=== PATIENT | female | born 1940 | race Caucasian/White ===

== ENCOUNTER 2017-05-24 15:46 | Observation (INO) ==
[2017-05-24] MEDS ORDERED: 0.9 % Sodium Chloride 1,000 ML IVC ONE (18:01)
--- NOTE | 2017-05-24 18:22 | Emergency Department Note ---
Addendum entered and electronically signed by Valdo Bella DO 05/24/17 21 :35: Received patient in signout from Dr. Ureña. On my evaluation, the patient is stable in no acute distress. Imaging was negative for acute findings. Labs were without acute abnormalities. On my history, the patient describes more of a syncopal event today and which she was gardening, stood up to walk to another area of the garden, and the next thing she knew she was on the ground. This sounds more orthostatic, but she does not describe orthostatic situation in her prior falls in the last 2 weeks. We will bring her in for evaluation of multiple falls and likely syncope. Septic by the hospitalist for further management. Original Note: Disposition Clinical Impression: Multiple falls, Hx of cerebral aneurysm repair Disposition: Still a Patient Condition: Fair Time of Disposition: 19:36 Fall HPI - General Chief Complaint: ED Fall Stated Complaint: Falling Time Seen by Provider: 05/24/17 18:00 Source: patient Nursing Notes Reviewed: Yes Vital Signs Reviewed: Yes - History of Present Illness HPI Narrative: 77-year-old female with 6 falls over the last 1 week, patient is a history of multiple aneurysms one that was clipped in [facility], she also has a history of intraparenchymal hemorrhage, and stroke she takes aspirin Plavix, she has fallen several times but does not hit her head she thinks, denies loss of consciousness, she is of some right hip injury, but she is able to walk and bear weight on her right hip, she decided to come in she lives alone independently at home. This time she denies any chest pain or syncope, there is no prodrome prior to the fall but she is not sure if she tripped she is a little bit unclear if this call fall was mechanical, or hip pain is 3 out of 10 nonradiating, and aching in quality. She denies any fever chills weight changes recently nausea vomiting diarrhea constipation or urinary symptoms Pt Subjective Complaint: fall Onset (ago): day(s) Fall From: standing Fall Witnessed: no Place Fall Occurred: home Loss of Consciousness: unsure Prolonged Down Time?: no Symptoms Prior to Fall: dizziness Context: tripped/slipped Location of injury: head Location of injury - extremities: Right: hip Severity: mild Severity scale (1-10): 3 Associated symptoms (after fall): Reports: denies. Denies: headache, neck pain , numbness, weakness, shortness of breath - Related Data Home Medications Medication Instructions Recorded Confirmed Om3-Dha/Epa/D3/Lutein/Zeazanth 1 each PO BID 07/16/15 05/24/17 [Eye [place] Advantage Softgel] Aspirin [Ecotrin] 325 mg PO DAILY 05/24/17 05/24/17 Allergies Allergy/AdvReac Type Severity Reaction Status Date / Time Penicillins Allergy Severe Anaphylaxis Verified 05/24/17 16:16 acetaminophen [From Percocet] Allergy Mild Hives Verified 05/24/17 16:16 aspirin [From Percodan] Allergy Mild Hives Verified 05/24/17 16:16 hydrocodone [From Vicodin] Allergy Mild Hives Verified 05/24/17 16:16 Oxycodone [From Percocet] Allergy Mild Hives Verified 05/24/17 16:16 Procaine [From Novocain] Allergy Mild Hives Verified 05/24/17 16:16 propoxyphene Allergy Mild Hives Verified 05/24/17 16:16 [From Darvocet-N 100] IVP DYE Allergy Severe Anaphylaxis Uncoded 05/24/17 16:16 SEAFOOD Allergy Severe Anaphylaxis Uncoded 05/24/17 16:16 All systems ED: reviewed and negative except as stated. Constitutional: Reports: weakness. Denies: fever, chills Eyes: Denies: eye pain, eye discharge ENT ED: Denies: ear pain, throat pain Cardiovascular: Denies: chest pain, palpitations Respiratory: Denies: cough, dyspnea Gastrointestinal: Denies: abdominal pain, nausea, vomiting Genitourinary: Denies: urgency, dysuria Musculoskeletal: Reports: as per HPI, arthralgia. Denies: back pain, neck pain Integumentary: Denies: rash, abrasion Neurological: Reports: as per HPI. Denies: headache Fall PMH - Past Medical History Medical history: Reports: CVA, GERD, hyperlipidemia, TIA Surgical history: Reports: appendectomy, hysterectomy (colonoscopy, rotator cuff repair, carpal tunnel release R,bladder sling, Hysterectomy, back surgery.) Psychiatric history: Reports: no psych history CERAMIST history: Reports: no CERAMIST history - Social History Smoking Status: Former smoker Alcohol use: Reports: none Drug use: Reports: none Physical Exam Constitutional: Elderly female in no acute distress, hemodynamically stable. HEENT: NCAT, sclera anicteric Neck: normal inspection, neck is supple, trachea midline Resp: normal chest inspection, CTA bilaterally, no resp distress CV: RRR, no m/g/r GI: normal inspection, Soft, NTND, BS present Back: normal inspection, no tenderness to palpation Neuro: A&O3, nerves II through XII grossly intact bilaterally, patient with no focal neurologic deficits, upper and lower extremities equal muscle strength bilaterally, MSK: normal inspection, right hip mildly tender to palpation pelvis stable. Psych: normal mood, normal affect Skin: No rashes, skin warm, dry, intact - General Limitations: no limitations General appearance: alert, in no apparent distress Course Course Narrative: 77-year-old female with mechanical versus questionable syncopal fall, she did state that she is still dizzy, she is a history of aneurysms [place] will hemorrhage and stroke we will get a head CT stat, basic lab work with troponin EKG and reevaluate. - Reevaluation(s) Reevaluation #1: Care signed out to Dr. Shayne Jose, for ultimate disposition the patient Time: 19:10 Vital Signs Temperature 98.0 F 05/24/17 16:10 Pulse Rate 90 05/24/17 16:10 Respiratory Rate 18 05/24/17 16:10 Blood Pressure 159/80 05/24/17 16:10 O2 Sat by Pulse Oximetry 98 05/24/17 16:10 Temperature 97.6 F 05/26/17 07:26 Pulse Rate 76 05/26/17 07:26 Respiratory Rate 16 05/26/17 07:26 Blood Pressure 158/78 05/26/17 07:26 O2 Sat by Pulse Oximetry 99 05/26/17 07:26 Oxygen Delivery Oxygen Delivery Room Air Fall - Differential Diagnosis Likely: syncope - Lab Data Result diagrams: 05/25/17 06:26 05/25/17 06:26 Lab Results 05/24/17 05/24/17 05/24/17 Range/Units 18:59 18:59 18:59 WBC 6.5 (4.3-11.1) K/mcL RBC 4.51 (3.82-4.97) M/mcL Hgb 12.9 (11.5-15.4) g/dL Hct 40.2 (35.3-44.9) % MCV 89.1 (83.0-100.0) fL MCH 28.6 (28.0-33.3) pg MCHC 32.1 (31.6-35.5) g/dL RDW 12.8 (11.5-14.5) % Plt Count 255 (140-400) K/mcL MPV 10.5 (9.4-12.4) fL Immature Gran % 0.2 (0-4) % Seg Neutrophils % 63.0 % Lymphocytes % 27.7 % Monocytes % 6.6 % Eosinophils % 2.0 % Basophils % 0.5 % Neutrophils # 4.1 (1.6-8.9) K/mcL Lymphocytes # 1.8 (0.6-4.6) K/mcL Monocytes # 0.4 (0.0-1.3) K/mcL Eosinophils # 0.1 (0.0-0.6) K/mcL Basophils # 0.0 (0.0-0.2) K/mcL PT 10.7 (9.4-12.1) Seconds INR 1.0 Sodium 143 (136-145) mEq/L Potassium 3.8 (3.5-4.5) mEq/L Chloride 111 H (98-109) mEq/L Carbon Dioxide 26 (19-29) mEq/L BUN 21 H (7-20) mg/dL Creatinine 0.73 (0.57-1.11) mg/dL Est GFR ( Amer) > 60 (> 60) Est GFR (Non-Af Amer) > 60 (> 60) BUN/Creatinine Ratio 29 H (6-26) Glucose 101 H (70-99) mg/dL Calculated Osmolality 299 (280-300) Calcium 8.8 (8.6-10.8) mg/dL Total Bilirubin 0.5 (0.2-1.2) mg/dL AST 19 (5-34) Units/L ALT 15 (0-55) Units/L Alkaline Phosphatase 108 (38-126) Units/L Serum Total Protein 6.5 (6.0-8.3) g/dL Albumin 3.4 L (3.5-5.0) g/dL Globulin 3.1 (2.4-3.5) g/dL Albumin/Globulin Ratio 1.1 (1.1-2.2) Urine Color (Yellow) Urine Clarity (Clear) Urine pH (5.0-8.0) pH Units Ur Specific [place] (1.010-1.025) Urine Protein (Neg-Trace) mg/dL Urine Glucose (UA) (Normal) mg/dL Urine Ketones (Negative) mg/dL Urine Blood (Negative) Urine Nitrite (Negative) Urine Bilirubin (Negative) Urine Urobilinogen (Normal) mg/dL Ur Leukocyte Esterase (Negative) Ur Culture Indicated? (NO) 05/24/17 Range/Units 20:41 WBC (4.3-11.1) K/mcL RBC (3.82-4.97) M/mcL Hgb (11.5-15.4) g/dL Hct (35.3-44.9) % MCV (83.0-100.0) fL MCH (28.0-33.3) pg MCHC (31.6-35.5) g/dL RDW (11.5-14.5) % Plt Count (140-400) K/mcL MPV (9.4-12.4) fL Immature Gran % (0-4) % Seg Neutrophils % % Lymphocytes % % Monocytes % % Eosinophils % % Basophils % % Neutrophils # (1.6-8.9) K/mcL Lymphocytes # (0.6-4.6) K/mcL Monocytes # (0.0-1.3) K/mcL Eosinophils # (0.0-0.6) K/mcL Basophils # (0.0-0.2) K/mcL PT (9.4-12.1) Seconds INR Sodium (136-145) mEq/L Potassium (3.5-4.5) mEq/L Chloride (98-109) mEq/L Carbon Dioxide (19-29) mEq/L BUN (7-20) mg/dL Creatinine (0.57-1.11) mg/dL Est GFR ( Amer) (> 60) Est GFR (Non-Af Amer) (> 60) BUN/Creatinine Ratio (6-26) Glucose (70-99) mg/dL Calculated Osmolality (280-300) Calcium (8.6-10.8) mg/dL Total Bilirubin (0.2-1.2) mg/dL AST (5-34) Units/L ALT (0-55) Units/L Alkaline Phosphatase (38-126) Units/L Serum Total Protein (6.0-8.3) g/dL Albumin (3.5-5.0) g/dL Globulin (2.4-3.5) g/dL Albumin/Globulin Ratio (1.1-2.2) Urine Color Yellow (Yellow) Urine Clarity Clear (Clear) Urine pH 7.0 (5.0-8.0) pH Units Ur Specific [place] 1.009 L (1.010-1.025) Urine Protein Negative (Neg-Trace) mg/dL Urine Glucose (UA) Normal (Normal) mg/dL Urine Ketones Trace H (Negative) mg/dL Urine Blood Negative (Negative) Urine Nitrite Negative (Negative) Urine Bilirubin Negative (Negative) Urine Urobilinogen Normal (Normal) mg/dL Ur Leukocyte Esterase Negative (Negative) Ur Culture Indicated? NO (NO) - EKG Data EKG attestation: Yes I reviewed and interpreted this EKG. EKG results narrative: Normal sinus at 83. Normal ST segments. Normal QRS. Normal axis. EKG shows normal: sinus rhythm S.B.A.R. - S.B.A.R. Transition of Care: Dispo pending CTs Situation: Demographics, MOA Background: Presenting Complaint, Relevant PMH, Meds, & Allergies Assessment: Vital Signs, Course and respsone to treatment, Exam Concerns, Patient/Family Expectation, Pertinant Lab Results, Outstanding Labs Recommendation: Barrier(s) to disposition, Recommendation based on pending studies, treatments, or consults S.B.A.R. Report Given to: Shayne Abebe Repor Time: 19:35 Attestation Statement - Attestation Attestation: I examined this patient and my medical decision-making was reviewed with the SALES ATTENDANT/PA/Advanced Practice Nurse/Resident Physician. I agree with the documented findings, disposition and treatment plan as described except to the extent set forth below. Patient emergency department complaining of falls. Patient states she has had 5 falls recently. She is not sure why she is falling. She states she does not realize it is happening until she has fallen. Dizzy before but she has since last fall. Patient has a history of aneurysms. She is also on Plavix. On examination she is awake and alert. 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 No drift with arms or legs. No ataxia. Plan. Generalized weakness workup with head CT.
[2017-05-24 19:11] LABS: Basophils % 0.5 %; Eosinophils # 0.1 K/mcL (0.0-0.6); Hematocrit 40.2 % (35.3-44.9); Hemoglobin 12.9 g/dL (11.5-15.4); Immature Granulocytes % 0.2 % (0-4); Lymphocytes # 1.8 K/mcL (0.6-4.6); Lymphocytes % 27.7 %; Mean Corpuscular HGB Conc 32.1 g/dL (31.6-35.5); Mean Corpuscular Hemoglobin 28.6 pg (28.0-33.3); Mean Corpuscular Volume 89.1 fL (83.0-100.0); Mean Platelet Volume 10.5 fL (9.4-12.4); Monocytes # 0.4 K/mcL (0.0-1.3); Monocytes % 6.6 %; Neutrophils # 4.1 K/mcL (1.6-8.9); Platelet Count 255 K/mcL (140-400); Red Blood Count 4.51 M/mcL (3.82-4.97); Red Cell Distribution Width 12.8 % (11.5-14.5)
[2017-05-24 19:22] LABS: Alanine Aminotransferase 15 Units/L (0-55); Albumin 3.4 g/dL (3.5-5.0); Albumin/Globulin Ratio 1.1 (1.1-2.2); Alkaline Phosphatase 108 Units/L (38-126); Aspartate Amino Transferase 19 Units/L (5-34); BUN/Creatinine Ratio 29 (6-26); Bilirubin,Total 0.5 mg/dL (0.2-1.2); Blood Urea Nitrogen 21 mg/dL (7-20); Calcium 8.8 mg/dL (8.6-10.8); Carbon Dioxide 26 mEq/L (19-29); Chloride 111 mEq/L (98-109); Globulin 3.1 g/dL (2.4-3.5); Glucose 101 mg/dL (70-99); Osmolality,Calculated 299 (280-300); Potassium 3.8 mEq/L (3.5-4.5); Sodium 143 mEq/L (136-145); Total Protein 6.5 g/dL (6.0-8.3); eGFR For African Americans > 60 (> 60); eGFR For Non-African Americans > 60 (> 60)
[2017-05-24 19:45] LABS: Prothrombin Time 10.7 Seconds (9.4-12.1)
[2017-05-24 20:49] LABS: Bilirubin,Urine Negative (Negative); Blood,Urine Negative (Negative); Clarity,Urine Clear (Clear); Color,Urine Yellow (Yellow); Glucose,Urine (UA) Normal (Normal); Ketones,Urine Trace mg/dL (Negative); Leukocyte Esterase,Urine Negative (Negative); Nitrite,Urine Negative (Negative); Protein,Urine Negative (Neg-Trace); Specific Gravity,Urine 1.009 (1.010-1.025); Urobilinogen,Urine Normal (Normal)
--- NOTE | 2017-05-24 22:31 | Internal Med History&Physical ---
Date of Encounter: 05/25/17 Time of Encounter: 22:15 Assessment and Plan (1) Multiple falls Current visit: Yes Status: Acute Multiple falls over the past one week - unclear etiology Patient is fairly independent and lives by herself and ambulates independently Possible syncopal episodes vs CVA/TIA vs arrhythmia, less likely to be seizures EKG normal sinus rhythm Troponin pending CT head no acute and chronic process Chest x-ray no acute process Echocardiogram pending, carotid Doppler pending, MRI brain pending Continue aspirin, PT consult (2) Hyperlipidemia Current visit: Yes Status: Chronic Patient states she has been on multiple statins in the past, and she cannot tolerate them 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 and myopathy Qualifiers: Hyperlipidemia type: unspecified Qualified Code(s): E78.5 - Hyperlipidemia , unspecified (3) History of TIA (transient ischemic attack) Current visit: No Status: Chronic History of TIA, unclear if patient ever had a CVA Patient takes only aspirin at home (4) Hx of cerebral aneurysm repair Current visit: Yes Status: Chronic Patient has a history of cerebral aneurysm repair with clipping Follow up at [facility] (5) DVT prophylaxis Current visit: Yes Status: Acute Continue SCDs Internal Medicine - H&P: HPI Chief complaint: Multiple falls Admitted From: Emergency Dept History of present illness: Ms. Cee is a 77 year old female with past medical history of hyperlipidemia , TIA, cerebral aneurysm and GERD. She presents to the ED with complaints of multiple falls. Patient states over the past 1 week she has had almost 6 falls. Patient was apparently working in her garden today and in summary had an episode where she felt lightheaded and had a fall. She denies hitting her head. Denies loss of consciousness. Patient does complain of some right hip pain and right hip pain. Patient denies chest pain or shortness of breath. No dizziness at present. Denies palpitations, denies vomiting or abdominal pain or diarrhea. No fever or chills. At this time there is no clear evidence of syncope. Patient only felt lightheaded and had a fall, she is not sure if she tripped. This history is unclear at this time. She has had cerebral aneurysms in the past. Patient states she only takes aspirin at home. On examination patient is awake and alert. Not in any distress. Able to provide all history. No family members at bedside. Patient is alert and oriented. Initially the workup is negative including CT of the head and chest x-ray and hip x-ray. EKG shows normal sinus rhythm. Labs were fairly within normal limits. Patient is being admitted for multiple falls for further workup. Echocardiogram and carotid Doppler and MRI have been ordered. Patient has been explained about her condition and plan of care. She understood and agreed. No unanswered questions. CODE STATUS full code. Past Med Surg Social Fam HX - Past Medical History Medical history: CVA, GERD, hyperlipidemia, TIA Psychiatric history: no psych history - Past Surgical History Surgical History: appendectomy, hysterectomy (colonoscopy, rotator cuff repair, carpal tunnel release R,bladder sling, Hysterectomy, back surgery.) - Social History Smoking Status: Former smoker Smokeless Tobacco Status: No Alcohol use: none Drug use: none - Family History Mother Hx Family Cardiac Disorders: Yes (heart attack) Internal Medicine - H&P: Meds Om3-Dha/Epa/D3/Lutein/Zeazanth [Eye [place] Advantage Softgel] 1 each PO BID 07/16 [History] Aspirin [Ecotrin] 325 mg PO DAILY 05/24/17 [History] Allergies Penicillins Allergy (Severe, Verified 05/24/17 16:16) Anaphylaxis acetaminophen [From Percocet] Allergy (Mild, Verified 05/24/17 16:16) Hives aspirin [From Percodan] Allergy (Mild, Verified 05/24/17 16:16) Hives hydrocodone [From Vicodin] Allergy (Mild, Verified 05/24/17 16:16) Hives Oxycodone [From Percocet] Allergy (Mild, Verified 05/24/17 16:16) Hives Procaine [From Novocain] Allergy (Mild, Verified 05/24/17 16:16) Hives propoxyphene [From Darvocet-N 100] Allergy (Mild, Verified 05/24/17 16:16) Hives IVP DYE Allergy (Severe, Uncoded 05/24/17 16:16) Anaphylaxis SEAFOOD Allergy (Severe, Uncoded 05/24/17 16:16) Anaphylaxis All Systems PM: A 10-system review of systems was performed and is negative for pertinent findings except as documented above in the HPI. - Constitutional Constitutional: as per HPI, fatigue, weakness - EENT Eyes: no blurry vision, no loss of vision, no photophobia - Cardiovascular Cardiovascular ROS IM: lightheadedness, syncope (Unclear if actual syncopal episode occurred), no chest pain, no diaphoresis, no dyspnea, no dyspnea on exertion, no orthopnea, no paroxysmal nocturnal dyspnea - Respiratory Respiratory: no cough, no dyspnea, no dyspnea on exertion, no wheezing, no chest congestion - Gastrointestinal Gastrointestinal: no abdominal pain, no cramping, no diarrhea, no hematochezia, no nausea, no vomiting - Genitourinary Genitourinary: no dysuria - Musculoskeletal Musculoskeletal ROS IM: arthralgias - Neurological Neurological ROS: dizziness (Mild), no abnormal gait, no abnormal speech, no focal weakness, no loss of vision, no memory loss, no numbness, no paresthesias - Constitutional Vitals: Temp Pulse Resp BP Pulse Ox 98.0 F 90 16 97 05/24/17 16:10 05/24/17 22:18 05/24/17 22:18 05/24/17 22:18 05/24/17 22:18 General appearance: Present: A&O X 3, pleasant, no acute distress, answers questions appropriately - Head Head exam: Present: atraumatic - Eye Eye exam: Present: EOMI - ENT ENT exam: Present: mucous membranes moist - Neck Neck exam general surgery: Present: supple - Respiratory Respiratory exam: Present: CTAB. Absent: rales, rhonchi, wheezes, tachypnea - Cardiovascular Cardiovascular exam: Present: RRR, +S1, +S2 - GI/Abdominal GI/Abdominal exam: Present: soft, no peritoneal signs. Absent: distended, guarding, tenderness - Extremities Exam Extremities exam: Present: radial pulses palpable and symetrical. Absent: cyanotic, pedal edema, tenderness - Neurological Exam Neurological exam: Present: alert, oriented X3, no focal deficits Internal Med - H&P Results - Labs CBC & Chem 7: 05/24/17 18:59 05/24/17 18:59 Labs: Short CBC 05/24/17 Range/Units 18:59 WBC 6.5 (4.3-11.1) K/mcL Hgb 12.9 (11.5-15.4) g/dL Hct 40.2 (35.3-44.9) % Plt Count 255 (140-400) K/mcL Neutrophils # 4.1 (1.6-8.9) K/mcL BMP 05/24/17 18:59 Sodium 143 Potassium 3.8 Chloride 111 H Carbon Dioxide 26 BUN 21 H Creatinine 0.73 Glucose 101 H Calcium 8.8 Liver Function 05/24/17 Range/Units 18:59 Total Bilirubin 0.5 (0.2-1.2) mg/dL AST 19 (5-34) Units/L ALT 15 (0-55) Units/L Alkaline Phosphatase 108 (38-126) Units/L Albumin 3.4 L (3.5-5.0) g/dL Urine 05/24/17 Range/Units 20:41 Urine Color Yellow (Yellow) Urine Clarity Clear (Clear) Urine pH 7.0 (5.0-8.0) pH Units Ur Specific [place] 1.009 L (1.010-1.025) Urine Protein Negative (Neg-Trace) mg/dL Urine Glucose (UA) Normal (Normal) mg/dL - Impressions ITS Impressions Chest X-Ray 05/24/17 18:01 IMPRESSION: No acute abnormality. D/ / Iggy Siddiqi MD / Iggy Siddiqi MD Interpreting Provider: Iggy Siddiqi MD Head CT 05/24/17 18:01 IMPRESSION: No acute intracranial abnormality. D/ / Guicho Hardin MD / Guicho Hardin MD Interpreting Provider: Guicho Hardin MD Hip X-Ray 05/24/17 18:01 IMPRESSION: 1. No acute osseous abnormality involving the right hip. D/ / Juve Bautista MD / Juve Bautista MD Interpreting Provider: Juve Bautista MD
[2017-05-24] MEDS ORDERED: Acetaminophen 325 MG TABLET PO PRN (23:28)
[2017-05-24] MEDS ORDERED: Naloxone 0.4 MG/ML INJ IVP PRN (23:28)
[2017-05-24] MEDS ORDERED: Ondansetron 4 MG/2 ML VIAL IVP PRN (23:28)
[2017-05-25] MEDS: 0.9 % Sodium Chloride 1,000 ML IVC SCH ×3 (00:21→22:50)
[2017-05-25] MEDS: Gabapentin 100 MG CAPSULE PO SCH ×4 (03:05→20:26)
[2017-05-25] MEDS: Famotidine 20 MG/2 ML VIAL IVP SCH ×2 (05:24→16:54)
[2017-05-25 06:37] LABS: Basophils % 0.7 %; Eosinophils # 0.2 K/mcL (0.0-0.6); Eosinophils % 2.7 %; Hematocrit 38.7 % (35.3-44.9); Hemoglobin 12.5 g/dL (11.5-15.4); Immature Granulocytes % 0.4 % (0-4); Lymphocytes # 1.8 K/mcL (0.6-4.6); Lymphocytes % 33.1 %; Mean Corpuscular HGB Conc 32.3 g/dL (31.6-35.5); Mean Corpuscular Hemoglobin 28.4 pg (28.0-33.3); Mean Platelet Volume 10.5 fL (9.4-12.4); Monocytes # 0.4 K/mcL (0.0-1.3); Monocytes % 7.4 %; Neutrophils # 3.1 K/mcL (1.6-8.9); Platelet Count 246 K/mcL (140-400); Red Cell Distribution Width 12.8 % (11.5-14.5); Segmented Neutrophils % 55.7 %
[2017-05-25 06:52] LABS: BUN/Creatinine Ratio 21 (6-26); Blood Urea Nitrogen 12 mg/dL (7-20); Calcium 8.1 mg/dL (8.6-10.8); Carbon Dioxide 25 mEq/L (19-29); Chloride 114 mEq/L (98-109); Chol/HDL Ratio 4.7 (0-4.9); Cholesterol 186 mg/dL (< 200); Glucose 84 mg/dL (70-99); HDL Cholesterol 40 mg/dL (40-59); LDL Cholesterol,Calculated 128 mg/dL (0-99); Magnesium 1.6 mg/dL (1.6-2.6); Osmolality,Calculated 295 (280-300); Potassium 3.4 mEq/L (3.5-4.5); Sodium 143 mEq/L (136-145); Triglycerides 88 mg/dL (< 150); eGFR For African Americans > 60 (> 60); eGFR For Non-African Americans > 60 (> 60)
[2017-05-25] MEDS: [UNRECOGNIZED DRUG - OTHER] PO SCH ×2 (11:44→20:26)
[2017-05-25] MEDS: Aspirin Enteric Coated 325 MG Tablet PO SCH (11:47)
--- NOTE | 2017-05-25 15:21 | Internal Med Progress Note ---
Date of Encounter: 05/25/17 Time of Encounter: 12:00 - Assessment and plan (1) Multiple falls Current Visit: Yes Status: Acute Assessment and plan: No reported near-syncope or syncope. Likely due to left lower extremity weakness of uncertain etiology. CT head and MRI brain showed no evidence of acute infarct/stroke. Follow-up carotid Doppler. Echocardiogram shows preserved ejection fraction with mild left ventricular diastolic dysfunction and no gross abnormalities. IV hydration and supportive care. Patient may benefit from outpatient neurology follow-up. Of note, she does have history of cerebral aneurysm repair about one year ago with subsequent left-sided weakness , which has since improved. Physical therapy evaluation recommends home health services. 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 (2) History of TIA (transient ischemic attack) Current Visit: Yes Status: Inactive (3) Hypertension Current Visit: Yes Status: Chronic Assessment and plan: Blood pressure noted to be well controlled. Resume home medications. Qualifiers: Hypertension type: essential hypertension Qualified Code(s): I10 - Essential (primary) hypertension (4) Hx of cerebral aneurysm repair Current Visit: Yes Status: Chronic (5) Hyperlipidemia Current Visit: Yes Status: Chronic Qualifiers: Hyperlipidemia type: unspecified Qualified Code(s): E78.5 - Hyperlipidemia , unspecified - Subjective Interval history: No new complaints. Reports left leg weakness during participation with physical therapy. No nausea, vomiting, diarrhea, dizziness or syncope. - Constitutional Vitals: Temp Pulse Resp BP Pulse Ox 97.8 F 75 15 154/81 97 05/25/17 12:08 05/25/17 12:08 05/25/17 12:08 05/25/17 12:08 05/25/17 12:08 General appearance: Present: A&O X 3, answers questions appropriately - Respiratory Respiratory exam: Present: CTAB. Absent: accessory muscle use, rales, rhonchi, wheezes - Cardiovascular Cardiovascular exam: Present: RRR, +S1, +S2. Absent: diastolic murmur, gallop, rubs, systolic murmur - GI/Abdominal GI/Abdominal exam: Present: normal bowel sounds, soft, no peritoneal signs. Absent: distended, tenderness - Extremities Exam Extremities exam: Present: full ROM, warm, radial pulses palpable and symetrical. Absent: calf tenderness, cyanotic, pedal edema - Neurological Exam Neurological exam: Present: CN II-XII intact, oriented X3, no focal deficits (4/ 5 motor power in left lower extremity. 2+ hyperreflexia in left lower extremity ). Absent: pronater drift, facial droop, speech deficit Internal Medicine: Result - Labs CBC & Chem 7: 05/25/17 06:26 05/25/17 06:26 Labs: Short CBC 05/25/17 Range/Units 06:26 WBC 5.6 (4.3-11.1) K/mcL Hgb 12.5 (11.5-15.4) g/dL Hct 38.7 (35.3-44.9) % Plt Count 246 (140-400) K/mcL Neutrophils # 3.1 (1.6-8.9) K/mcL BMP 05/25/17 06:26 Sodium 143 Potassium 3.4 L Chloride 114 H Carbon Dioxide 25 BUN 12 Creatinine 0.58 Glucose 84 Calcium 8.1 L Cardiac Enzymes 05/25/17 Range/Units 00:54 Troponin I 0.00 (0-0.03) ng/mL - ABG Interpretation ABG results: PT/INR, D-dimer PT 10.7 Seconds (9.4-12.1) 05/24/17 18:59 - Impressions Impressions Brain MRI 05/24/17 23:32 IMPRESSION: 1. No acute intracranial abnormality. 2. Fluid in the right mastoid air cells may be congestive or infectious/inflammatory. 3. Senescent changes with diffuse parenchymal volume loss and sequela of chronic microvascular ischemic changes. D/ / 05/25/2017 11:10:39 Mirian Contreras MD / marcelo Interpreting Provider: Mirian Contreras MD Consult Discharge Plan - Plan Referrals: Jerica Cui MD [Primary Care Provider] -
--- NOTE | 2017-05-25 20:00 | Carotid Imaging Report ---
Carotid Duplex Patient Name:Aneta Cee Order Number:[id number] Procedure Date:05/25/2017 Date:1940Age:77 yrs Gender:Female Lt BP:148 / 77 mmHg Location:[facility] Room #: 3A31 Crankshaft Balancer:Nora Cervantes, RVT, RDCS Referring MD:Cosme Min MD floating derrick operator:Jerica Cui MD Reading MD:Jerod Ward MD Primary Indications:multiple falls Risk Factors Yes/No Hypercholesterolemia Yes Hx of TIA Yes Impressions: Findings: Left mid ICA has a severe, 60-79% stenosis. Right vertebral atypical flow Recommendations: Futher evaluation is recommended. Findings Carotid Duplex: Right: The right proximal common carotid artery has a PSV of 78 cm/s and a EDV of 18 cm/s. The right mid common carotid artery has a PSV of 92 cm/s and a EDV of 19 cm/s. The right distal common carotid artery has a PSV of 84 cm/s and a EDV of 20 cm/s. The right bifurcation has a PSV of 76 cm/s and a EDV of 16 cm/s. There is smooth heterogeneous plaque. The right proximal internal carotid artery has a PSV of 71 cm/s and a EDV of 15 cm/s. There is smooth heterogeneous plaque. The right mid internal carotid artery has a PSV of 79 cm/s and a EDV of 27 cm/s. The right distal internal carotid artery has a PSV of 72 cm/s and a EDV of 13 cm/s. The right eca has a PSV of 83 cm/s and a EDV of 11 cm/s. The right vertebral artery has a PSV of 25 cm/s and a EDV of 1 cm/s. The right subclavian artery has a PSV of 112 cm/s. Left: The left proximal common carotid artery has a PSV of 94 cm/s and a EDV of 20 cm/s. The left mid common carotid artery has a PSV of 94 cm/s and a EDV of 20 cm/s. The left distal common carotid artery has a PSV of 99 cm/s and a EDV of 21 cm/s. The left bifurcation has a PSV of 65 cm/s and a EDV of 20 cm/s. There is smooth heterogeneous plaque. The left proximal internal carotid artery has a PSV of 66 cm/s and a EDV of 14 cm/s. There is smooth heterogeneous plaque. The left mid internal carotid artery has a PSV of 179 cm/s and a EDV of 43 cm/s. The left distal internal carotid artery has a PSV of 142 cm/s and a EDV of 40 cm/s. The left eca has a PSV of 71 cm/s and a EDV of 9 cm/s. The left vertebral artery has a PSV of 50 cm/s and a EDV of 13 cm/s. The left subclavian artery has a PSV of 112 cm/s. Carotid Results Right PSV EDV Assessment Proximal CCA 78 18 Mid CCA 92 19 Distal CCA 84 20 Bifurcation 76 16 Non Stenotic Plaque Proximal ICA 71 15 Non Stenotic Plaque Mid ICA 79 27 Distal ICA 72 13 ECA 83 11 Vertebral Artery 25 1 Atypical flow Subclavian 112 Left PSV EDV Assessment Proximal CCA 94 20 Mid CCA 94 20 Distal CCA 99 21 Bifurcation 65 20 Non Stenotic Plaque Proximal ICA 66 14 Non Stenotic Plaque Mid ICA 179 43 60-79% stenosis Distal ICA 142 40 Post stenotic flow ECA 71 9 Vertebral Artery 50 13 Subclavian 112 Ratio's Right ICA/CCA Ratio: 0.77 Left ICA/CCA Ratio: 1.90 Updated by Jerod Ward MD on 05/25/2017 7:54:03 PM electronically signed on 05/25/2017 7:54:14 PM with status of Final
[2017-05-26] MEDS: Famotidine 20 MG/2 ML VIAL IVP SCH (05:48)
--- NOTE | 2017-05-26 08:29 | Electrocardiograph Report ---
[place] [id number] Test Date: 2017-05-24 Pat Name: Aneta Cee Department: 105 Room: 3A31 Gender: F Thread Laster: CHANDA : 1940 Requested By: Lucy Melgar Order Number: [id number] Reading MD: Luis Alberto Denny MD Measurements Intervals [place] Rate: 83 P: 33 [place]: 125 QRS: 9 QRSD: 90 T: 18 QT: 394 QTc: 434 Interpretive Statements SINUS RHYTHM Electronically Signed On 05-26-2017 8:27:35 EDT by Luis Alberto Denny MD
[2017-05-26] MEDS: [UNRECOGNIZED DRUG - OTHER] PO SCH (10:00)
[2017-05-26] MEDS: Gabapentin 100 MG CAPSULE PO SCH (10:00)
[2017-05-26] MEDS: Aspirin Enteric Coated 325 MG Tablet PO SCH (10:00)
--- NOTE | 2017-05-26 10:23 | Vascular/Endovasc Consult Note ---
Date of Encounter: 05/26/17 Time of Encounter: 11:00 Assessment and Plan (1) Carotid stenosis, left Status: Chronic The pathophysiology and natural history of carotid stenosis was discussed with the patient and all questions were answered. The patient has a 60-79% left internal carotid artery stenosis. She denies any recent symptoms of CVA, TIA or amaurosis fugax. Her exam is unremarkable. She reports a history of a CVA while undergoing cerebral aneurysm intervention, but has no residual deficits. Her MRI revealed no acute process. Her echocardiogram revealed no significant abnormalities. Continued surveillence of her carotid stenosis was recommended. She will follow-up in vascular clinic in 6 months with a repeat carotid duplex. She was instructed to seek immediate medical attention for signs or symptoms of CVA, TIA or amaurosis fugax. She was instructed to continue with daily ASA. (2) Hyperlipidemia Status: Chronic She was counseled regarding atherosclerotic risk factor reduction. Qualifiers: Hyperlipidemia type: unspecified Qualified Code(s): E78.5 - Hyperlipidemia , unspecified (3) Hypertension Status: Chronic Qualifiers: Hypertension type: essential hypertension Qualified Code(s): I10 - Essential (primary) hypertension - History of Present Illness Consult date: 05/26/17 Requesting physician: Kaylan Melgar Consult reason: Carotid artery stenosis Chief complaint: presyncope History of present illness: Ms. Cee is a 77 year old female with ahistory of hyperlipidemia and a cerebral aneurysm who reports that during the last week she has had episodes of lightheadedness and falls. She denies any prior loss of consciousness. She reports that she can feel her symptoms coming on and then she fals. She denies any symptoms of recent CVA, TIA or amaurosis fugax. She denies any palpitations. She was admitted to [facility] and as part of her evaluation she underwent a carotid duplex. She was noted to have significant stenosis and vascular surgery was consulted for further evaluation. She reports a history of a percutaneous repair of a right sided cerebral aneurysm. She also reports she had an attempted intervention on the left side, but a stent could not safely be placed. She states that she was told that the left aneurysm later regressed. She denies any visual disturbances. She denies headaches. She denies chest pain or shortness of breath. Past Med Surg Social Fam HX - Past Medical History Medical history: CVA, GERD, hyperlipidemia, TIA Psychiatric history: no psych history - Past Surgical History Surgical History: appendectomy, hysterectomy (colonoscopy, rotator cuff repair, carpal tunnel release R,bladder sling, Hysterectomy, back surgery.) - Social History Smoking Status: Former smoker Smokeless Tobacco Status: No Alcohol use: none Drug use: none - Family History Mother Hx Family Cardiac Disorders: Yes (heart attack) Medications and Allergies Om3-Dha/Epa/D3/Lutein/Zeazanth [Eye [place] Advantage Softgel] 1 each PO BID 07/16 [History] Aspirin [Ecotrin] 325 mg PO DAILY 05/24/17 [History] Allergies Penicillins Allergy (Severe, Verified 05/24/17 16:16) Anaphylaxis acetaminophen [From Percocet] Allergy (Mild, Verified 05/24/17 16:16) Hives aspirin [From Percodan] Allergy (Mild, Verified 05/24/17 16:16) Hives hydrocodone [From Vicodin] Allergy (Mild, Verified 05/24/17 16:16) Hives Oxycodone [From Percocet] Allergy (Mild, Verified 05/24/17 16:16) Hives Procaine [From Novocain] Allergy (Mild, Verified 05/24/17 16:16) Hives propoxyphene [From Darvocet-N 100] Allergy (Mild, Verified 05/24/17 16:16) Hives IVP DYE Allergy (Severe, Uncoded 05/24/17 16:16) Anaphylaxis SEAFOOD Allergy (Severe, Uncoded 05/24/17 16:16) Anaphylaxis All Systems Review: A 10-system review of systems was performed and is negative for pertinent findings except as documented above in the HPI. - Constitutional Constitutional: no chills, no fatigue - Cardiovascular Cardiovascular: no chest pain at rest, no chest pain with exertion, no dyspnea at rest, no dyspnea on exertion Exam Vital Signs, Last 4 Hours Temp Pulse Resp BP Pulse Ox 05/26/17 07:26 97.6 F 76 16 158/78 99 General: Present: Conversant, No Apparent Distress HEENT: Present: Atraumatic, Normocephaly, Trachea midline, Pupils equal Neck: Absent: JVD, Lymphadenopathy, Left Carotid bruit, Right Carotid bruit Cardiac: Present: Reg Rate and Rhythm, Normal S1 and S2, No Murmur Lungs: Present: Normal Breath Sounds, No Wheeze, Rales, Rhonchi Neuro: Present: Alert and responsive, No focal deficits noted, Cranial nerves grossly intact, Motor nerves grossly intact, Sensory nerves grossly intact Abdomen: Present: Soft, Non-tender. Absent: Hepatosplenomegaly, Masses Vascular: Present: Normal capillary refill, Pulse, normal. Absent: Clubbing, Cyanosis, Edema Consult Discharge Plan - Plan Additional Instructions: F/up with Neurology in 3-4 weeks F/up with Vascular Surgery as scheduled Referrals: Mitch Nicole MD [Partnered Physician] - 06/07/17 11:00 am Jerica Cui MD [Primary Care Provider] - 06/04/17 10:45 am Farhan Jensen MD [Partnered Physician] - 06/21/17 11:40 am
--- NOTE | 2017-05-26 11:38 | Discharge Summary ---
Date of Encounter: 05/26/17 Time of Encounter: 11:35 - Discharge Diagnosis (1) Multiple falls Priority: Primary Status: Acute (2) History of TIA (transient ischemic attack) Priority: Secondary Status: Inactive (3) Hypertension Priority: Secondary Status: Chronic Qualifiers: Hypertension type: essential hypertension Qualified Code(s): I10 - Essential (primary) hypertension (4) Hx of cerebral aneurysm repair Priority: Secondary Status: Chronic (5) Hyperlipidemia Priority: Secondary Status: Chronic Qualifiers: Hyperlipidemia type: unspecified Qualified Code(s): E78.5 - Hyperlipidemia , unspecified (6) Carotid stenosis, left Priority: Primary Status: Chronic - Discharge Medications Home Medications: Om3-Dha/Epa/D3/Lutein/Zeazanth [Eye [place] Advantage Softgel] 1 each PO BID 07/16 [History] Aspirin [Ecotrin] 325 mg PO DAILY 05/24/17 [History] Allergies/Adverse Reactions: Allergies Penicillins Allergy (Severe, Verified 05/24/17 16:16) Anaphylaxis acetaminophen [From Percocet] Allergy (Mild, Verified 05/24/17 16:16) Hives aspirin [From Percodan] Allergy (Mild, Verified 05/24/17 16:16) Hives hydrocodone [From Vicodin] Allergy (Mild, Verified 05/24/17 16:16) Hives Oxycodone [From Percocet] Allergy (Mild, Verified 05/24/17 16:16) Hives Procaine [From Novocain] Allergy (Mild, Verified 05/24/17 16:16) Hives propoxyphene [From Darvocet-N 100] Allergy (Mild, Verified 05/24/17 16:16) Hives IVP DYE Allergy (Severe, Uncoded 05/24/17 16:16) Anaphylaxis SEAFOOD Allergy (Severe, Uncoded 05/24/17 16:16) Anaphylaxis Procedures/tests Complete & Pending: Procedures Performed prior 72 hours Category Date Time Status MR head/brain wo con [MR] Stat MRI 05/24/17 23:32 Draft ECG 12 lead ECG [ECG] AM 0600 Y 05/25/17 06:00 Ordered ECG 12 lead ECG [ECG] Routine Y 05/24/17 18:04 Completed EV carotid duplex imaging BI Stat Y 05/25/17 08:00 Completed EV echocardiogram Stat Y 05/25/17 08:00 Completed Date of admission: 05/24/17 22:46 Primary care physician: Jerica Cui Consults: 05/24/17 23:30 Consult to Physical Therapy [CONS] Routine Comment: Evaluate, develop and implement POC Reason for Consult: pt eval 05/24/17 23:33 Consult to Construction Or Leak Gang Laborer [CONS] Routine Reason for SW Consult: d/c planning 05/25/17 12:38 OT [Consult to Occupational Therapy] [CONS] Routine Comment: Evaluate, develop and implement POC Reason for Consult: eval for discharge 05/26/17 10:27 Consult to Vascular Surgery [CONS] Routine Consulting Provider: Vascular Surgery Nicole Reason for Consult: Left mid ICA stenosis Call Completed: Yes Discharging clinician: Kaylan Melgar Anticipated date of discharge: 05/26/17 - Patient Status Disposition: Home Health Service Condition: Fair Functional capacity at discharge: uses cane/walker Overall status at discharge: patient is progressing back to baseline - Discharge Instructions Follow Up With: Mitch Nicole MD [Partnered Physician] - 06/07/17 11:00 am Jerica Cui MD [Primary Care Provider] - 06/04/17 10:45 am Farhan Jensen MD [Partnered Physician] - 06/21/17 11:40 am Additional Instructions: F/up with Neurology in 3-4 weeks F/up with Vascular Surgery as scheduled - Diet and Activity Activity: as per physical therapy Diet: low fat, low cholesterol, low salt diet Hospital course: Ms. Cee is a 77 year old female admitted after sustaining a mechanical fall. CT head and right hip x-ray done in the emergency room showed no evidence of fracture or acute trauma. Patient does not report near syncope or syncope. She does not have orthostatic hypotension. She was noted to have mild left lower extremity weakness on all objective assessment. Physical therapy evaluation was completed and home health services were recommended for continued rehabilitation. Patient declines use of walker as directed and to treat her but is agreeable to using her cane. Further stroke workup has remained negative. MRI brain showed no evidence of acute infarct or bleed. Echocardiogram shows preserved ejection fraction with no other cross abnormalities. Bilateral carotid Doppler ultrasound revealed 60- 79% stenosis in left mid ICA; vascular surgery has been consulted and patient is recommended to follow up as an outpatient. Patient is currently medically stable for discharge with outpatient neurology follow-up for left leg weakness. - Time Spent with Patient Total time spent providing and/or coordinating discharge services: Greater than 30 minutes (45 min) - Constitutional Vitals: Temp Pulse Resp BP Pulse Ox 97.6 F 76 16 158/78 99 05/26/17 07:26 05/26/17 07:26 05/26/17 07:26 05/26/17 07:26 05/26/17 07:26 General appearance: Present: A&O X 3, answers questions appropriately - Respiratory Respiratory exam: Present: CTAB. Absent: accessory muscle use, rales, rhonchi, wheezes - Cardiovascular Cardiovascular exam: Present: RRR, +S1, +S2. Absent: diastolic murmur, gallop, rubs, systolic murmur
--- NOTE | 2017-05-26 11:40 | Physician Discharge Referral ---
Home Health/Hosp Referral Info Transfer to: Home Health Attending Provider: Kaylan Melgar Provider in Charge Post Discharge: PCP - Diagnosis (1) Multiple falls Priority: Primary Status: Acute (2) Hypertension Priority: Secondary Status: Chronic (3) Hx of cerebral aneurysm repair Priority: Secondary Status: Chronic (4) Hyperlipidemia Priority: Secondary Status: Chronic (5) Carotid stenosis, left Priority: Primary Status: Chronic - Respiratory Orders Smoking Cessation: Smoking cessation has been advised. For more information, call the [place] Tobacco Quit Line at 7-641-FURD-NOW. - Diet/Nutrition Diet/Nutrition Orders: Cardiac - Activity Activity Orders: Ambulate - Services Needed Following services are medically necessary services: Nursing, Physical Therapy, Occupational Therapy - Transfer Medications Home Medications: Om3-Dha/Epa/D3/Lutein/Zeazanth [Eye [place] Advantage Softgel] 1 each PO BID 07/16 [History] Aspirin [Ecotrin] 325 mg PO DAILY 05/24/17 [History] Allergies/Adverse Reactions: Allergies Penicillins Allergy (Severe, Verified 05/24/17 16:16) Anaphylaxis acetaminophen [From Percocet] Allergy (Mild, Verified 05/24/17 16:16) Hives aspirin [From Percodan] Allergy (Mild, Verified 05/24/17 16:16) Hives hydrocodone [From Vicodin] Allergy (Mild, Verified 05/24/17 16:16) Hives Oxycodone [From Percocet] Allergy (Mild, Verified 05/24/17 16:16) Hives Procaine [From Novocain] Allergy (Mild, Verified 05/24/17 16:16) Hives propoxyphene [From Darvocet-N 100] Allergy (Mild, Verified 05/24/17 16:16) Hives IVP DYE Allergy (Severe, Uncoded 05/24/17 16:16) Anaphylaxis SEAFOOD Allergy (Severe, Uncoded 05/24/17 16:16) Anaphylaxis Certification: Further, I certify that my clinical findings support that this patient is homebound (i.e. absences from home require considerable and taxing effort and are for medical reasons or zoroastrian services or infrequently or short duration when for other reasons) because: Homebound Reason: Patient requires assistance of a person or device to safely leave home, Leaving home requires considerable and taxing effort due to condition Attestation: My signature below is to certify that this patient is under my care and that I, or nurse practitioner, or a physician's human resources office assistant working with me, has a face-to -face encounter with this patient.
[2017-05-26 12:20] VITALS: BP 102/67
== END 2017-05-26 14:03 | disposition home health service (06) ==
LOC: 3ANU 15:46 → EMEROO 15:46 → SUATTDRO 22:46 → 3ANU 23:31
PROVIDERS: ADMIT Family Medicine; ATTEND Internal Medicine